=== PATIENT | female | born 2000 | race Caucasian/White ===

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

== ENCOUNTER 2022-01-06 10:14 | Emergency (ER) | payer MEDICAID, SELFPAY ==
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
[2022-01-06 10:35] VITALS: BP 131/68; PULSE 86; RESP 20; TEMP 36.6; O2SAT 98; BMI 18.8
== END 2022-01-06 11:09 | disposition home or self-care (01) ==
PROVIDERS: Emergency Provider Emergency Medicine
DX: S01.111A Laceration without foreign body of right eyelid and periocular area, initial encounter (principal); X99.0XXA Assault by sharp glass, initial encounter; Y93.01 Activity, walking, marching and hiking; Y92.410 Unspecified street and highway as the place of occurrence of the external cause; Y99.9 Unspecified external cause status
CPT/HCPCS: 12013; 99282; 99284

== ENCOUNTER 2022-01-21 09:48 | Emergency (ER) | payer MEDICAID, SELFPAY ==
[2022-01-21 09:53] VITALS: BP 145/78; PULSE 87; RESP 16; TEMP 36.7; O2SAT 98; BMI 21.9
--- NOTE | 2022-01-21 10:54 | ED.GENADULT ---
HPI - General Adult General Chief complaint: Skin/Abscess/Foreign Body Stated complaint: suture removal Time Seen by Provider: 01/21/22 10:25 Source: patient Mode of arrival: ambulatory Limitations: no limitations History of Present Illness HPI narrative: 21-year-old female presents to ED for suture removal on right upper eyelid. Patient denies any pus discharge, foul odor, redness, swelling, or eye pain. Related Data Previous Rx's Medication Instructions Recorded cephalexin 500 mg capsule 500 mg PO Q6H 7 days #28 caps 01/06/22 Allergies Allergy/AdvReac Type Severity Reaction Status Date / Time No Known Allergies Allergy Verified 10/29/21 17:40 Review of Systems Review of Systems: suture removal Yes all other systems are reviewed and are negative [facility] Social History Social History Advance Directives: No Advance Directives Information Provided: No Physical Exam ED Vital Signs: Vital Signs - 24 hr 01/21/22 09:53 Temperature 98.1 F Pulse Rate 87 Respiratory Rate 16 Blood Pressure 145/78 H Pulse Oximetry 98 Oxygen Delivery Method Room Air BMI result Body Mass Index 21.9 Const General: cooperative, healthy appearing, comfortable, no acute distress, well developed, alert, awake and Physically active Orientation/consciousness: patient oriented x3 HENMT Head: Yes normal to inspection, Yes No palpable skull fracture present, Yes normocephalic, Yes atraumatic and No abrasion Eyes General: appearance normal, both eyes and all related structures Eyes/upper lids images: 1. [address] Negative for erythema, pus discharge, foul odor, or fluctuance. Neck Neck: Yes normal visual inspection, Yes full ROM, Yes no lymphadenopathy, Yes no meningeal signs, Yes trachea midline, Yes supple, No anterior neck swelling and No tender Chest Chest palpation & inspection: normal inspection of the chest and normal palpation of entire chest wall Resp Effort & Inspection: normal respiratory effort and able to speak in complete sentences Auscultation: clear to auscultation bilaterally GI Inspection: Yes normal to inspection and No abdominal wall ecchymosis Palpation (GI): Soft to palpation, not firm, nontender, no guarding and not rigid General: No CVA tenderness and Yes no CVA tenderness Back/Spine/Pelvis Back: no CVA tenderness, No CVA tenderness and No back tenderness Skin General skin exam: no rashes or lesions noted and elasticity normal Neuro General: patient oriented x3, gait normal, tone normal and no meningeal signs Cranial nerves: Yes CN's II-XII intact bilaterally Extrem General: Yes normal to inspection and Yes full ROM Psych Appearance: grossly normal, well kempt and not disheveled Course Course Course Narrative: Wound well appearing Reevaluation(s) Reevaluation #1: Wound cleaned with sterile saline and Betadine. Three sutures removed with suture kit. Time: 10:57 Medical Decision Making [facility] Narrative Medical decision making narrative: Suture removal Discharge Plan Discharge Clinical Impression: Encounter for removal of sutures Patient Disposition: Home, Self-Care Instructions: Stitches Removal (ED) Additional Instructions: Return to the ED for any eye swelling, pus discharge, foul odor, redness, eye pain, fever, chills, or any other concerning symptoms. Please follow-up with primary care provider Prescriptions: No Action cephalexin 500 mg capsule 500 mg PO Q6H 7 Days Qty: 28 0RF Interventions: ED Discharge Assessment Last Done: 01/21/22 11:16 Discharge Date/Time: 01/21/22 11:19 Print Language: Hebrew
== END 2022-01-21 11:19 | disposition home or self-care (01) ==
PROVIDERS: Emergency Provider Student in an Organized Health Care Education/Training Program; PCP Pediatrics
DX: Z48.02 Encounter for removal of sutures (principal)
CPT/HCPCS: 99283